=== PATIENT | male | born 1945 | race Caucasian/White ===

== ENCOUNTER → 2018-10-18 16:28 | Outpatient (REF) | payer OTHER, SELFPAY | LOC: LAB 16:28 | PROVIDERS: Visit Provider Internal Medicine | DX: L97.512 Non-pressure chronic ulcer of other part of right foot with fat layer exposed (principal) | CPT/HCPCS: 87070; 87075; 87077; 87147; 87186; 87205 ==

== ENCOUNTER 2018-10-25 16:57 | Emergency (ER) | payer OTHER, SELFPAY ==
[2018-10-25 17:05] VITALS: PULSE 97; RESP 165; O2SAT 96; BMI 24.4
--- NOTE | 2018-10-26 02:08 | ED.SKABFB ---
HPI - Skin/Abscess/Foreign Bdy General Chief complaint: Skin/Abscess/Foreign Body Stated complaint: GROIN INFECTION TOLD TO GET SEEN Time Seen by Provider: 10/25/18 17:55 Related Data Home Medications Medication Instructions Recorded Confirmed OMEGA-3 FATTY ACIDS (FISH OIL) 500 mg PO #2 08/11/16 atorvastatin [Lipitor] 40 mg PO HS #0 08/11/16 clopidogrel [Plavix] 75 mg PO QDAY #0 08/11/16 doxycycline hyclate 100 mg PO Q12H 10/25/18 10/25/18 glimepiride 4 mg PO DAILY 10/25/18 10/25/18 lisinopril 10 mg PO DAILY 10/25/18 10/25/18 metformin 1,000 mg PO DAILY 10/25/18 10/25/18 Allergies Allergy/AdvReac Type Severity Reaction Status Date / Time No Known Drug Allergies Allergy Verified 10/25/18 17:27 Exam Initial Vital Signs Initial Vital Signs: Vital Signs Pulse Rate 97 H 10/25/18 17:05 Respiratory Rate 165 H 10/25/18 17:05 Pulse Oximetry 96 10/25/18 17:05 Discharge Plan Departure Patient Disposition: Left Without Being Seen Clinical Impression: Patient left without being seen Discharge Date/Time: 10/25/18 19:59 Interventions: ED Discharge Assessment Last Done: 10/25/18 19:58
== END 2018-10-25 19:59 | disposition left against medical advice (07) ==
PROVIDERS: Emergency Provider Emergency Medicine
DX: Z53.21 Procedure and treatment not carried out due to patient leaving prior to being seen by health care provider (principal)
CPT/HCPCS: 99282

== ENCOUNTER 2018-10-26 17:14 | Emergency (ER) | payer OTHER, SELFPAY ==
[2018-10-26 17:16] VITALS: BP 138/75; PULSE 102; RESP 16; TEMP 37.2; O2SAT 98
--- NOTE | 2018-10-26 18:13 | ED.SKABFB ---
HPI - Skin/Abscess/Foreign Bdy General Chief complaint: Skin/Abscess/Foreign Body Stated complaint: INFECTION IN GROIN AREA Time Seen by Provider: 10/26/18 18:13 Source: patient Mode of arrival: ambulatory Limitations: no limitations History of Present Illness HPI narrative: The patient is a diabetic, on oral medications for diabetes control. His hemoglobin A1c is around 11. He notes his glucose testing has run high, he has not monitored regularly. He was seen by his primary care doctor yesterday for a toe infection that was started on doxycycline. He mentioned a progressive swelling to the scrotum over the past weeks. The swelling to the scrotum had increased in recent days. The patient came to the ER yesterday, but walked out without being seen due to a long wait time. Today the swelling on the scrotum popped with drainage of brown fluid. Pain and swelling have decreased significantly. He is having no fever chills. he has a lump on the posterior left hemiscrotum. There is no dysuria. There is no localized erythema. He is having no fever chills. Related Data Home Medications Medication Instructions Recorded Confirmed OMEGA-3 FATTY ACIDS (FISH OIL) 500 mg PO #2 08/11/16 atorvastatin [Lipitor] 40 mg PO HS #0 08/11/16 clopidogrel [Plavix] 75 mg PO QDAY #0 08/11/16 doxycycline hyclate 100 mg PO Q12H 10/25/18 10/26/18 glimepiride 4 mg PO DAILY 10/25/18 10/26/18 lisinopril 10 mg PO DAILY 10/25/18 10/26/18 metformin 1,000 mg PO DAILY 10/25/18 10/26/18 Allergies Allergy/AdvReac Type Severity Reaction Status Date / Time No Known Drug Allergies Allergy Verified 10/25/18 17:27 Review of Systems Review of Systems ROS Unobtainable: All systems reviewed & are unremarkable except as noted in HPI and below Constitutional Denies chills, Denies fatigue and Denies fever(s) Cardiovascular Denies chest pain and Denies dyspnea Respiratory Denies cough and Denies dyspnea Gastrointestinal Gastrointestinal: Denies abdominal pain, Denies change in bowel habits, Denies nausea and Denies vomiting Genitourinary Denies hematuria, Denies flank pain and Denies urinary incontinence Comments: Swelling to the left hemiscrotum. Integumentary/Breasts Comments: Scrotal swelling with tenderness, no associated erythema or warmth. Endocrine Denies fatigue [facility] Medical History (Updated 10/26/18 @ 21:28 by Gregorio Rebolledo MD) Diabetes (Acute) Hyperlipidemia (Acute) Hypertension (Acute) No history of major surgery within 1 month (Acute) Social History Smoking Status: Never smoker Social History Smoking Status: Never smoker Exam Initial Vital Signs Initial Vital Signs: Vital Signs Temperature 99.0 F 10/26/18 17:16 Pulse Rate 102 H 10/26/18 17:16 Respiratory Rate 16 10/26/18 17:16 Blood Pressure 138/75 10/26/18 17:16 Pulse Oximetry 98 10/26/18 17:16 Const General: cooperative and well developed Nutritional Appearance: well nourished Orientation: alert, awake, oriented x3 and not confused Cardio Rate: regular rate Rhythm: regular rhythm Heart Sounds: no click, no gallops, no murmurs and no rubs Pulses: normal peripheral pulses GI Inspection: non-distended Palpation: soft, no hepatosplenomegaly, No guarding, No pulsatile mass and No tender Auscultation: normal bowel sounds Penis: normal penis Other: Abscess to the left posterior scrotum that is spontaneously draining. I was able to express 2 mL of brown. The fluid from the abscess site. There is no significant localized erythema or warmth. There is no cellulitis change. Extrem Other: Excoriation of skin to the right 2nd toe tip. There is a bandage that was soaked with urine material when removed. There is not a lot of ongoing drainage from the tip of the toe, the skin is cracked and there is erythema to the tip capillary refill is intact on that toe. Course Orders Ordered: ED Orders 10/26/18 18:45 Wound Culture and Gram Stain Stat 10/26/18 18:52 US scrotum Stat 10/26/18 19:00 Basic Metabolic Panel Stat Complete Blood Count AUTO DIFF Stat Lactate (Lactic Acid) Stat Vital Signs - 8 hr 10/26/18 17:16 10/26/18 21:36 Temperature 99.0 F 99.0 F Pulse Rate 102 H 83 Respiratory Rate 16 15 Blood Pressure 138/75 164/87 H Pulse Oximetry 98 97 MDM - Skin/Abscess/Foreign Bdy Lab Data Result diagrams: 10/26/18 19:00 10/26/18 19:00 Lab Results 10/26/18 10/26/18 10/26/18 Range/Units 19:00 19:00 19:00 WBC 11.0 (4.5-11.0) X10^3/uL RBC 3.68 L (4.5-5.9) X10^6/uL Hgb 11.9 L (13.5-17.5) g/dL Hct 35.4 L (41-53) % MCV 96.3 (80-100) fL MCH 32.4 (26-34) PG MCHC 33.7 (30-36) % RDW 12.7 (11.6-14.8) % Plt Count 261 (150-400) X10^3/uL Neut % (Auto) 75.4 H (50-75) % Lymph % (Auto) 13.5 L (25-40) % [place] % (Auto) 9.2 (3-14) % Eos % (Auto) 1.0 L (2-4) % Baso % (Auto) 0.9 (0-2) % Neut # (Auto) 8300 H (3615-3623) /uL Lymph # (Auto) 1500 (9538-4620) /uL [place] # (Auto) 1000 H (0-900) /uL Eos # (Auto) 100 (0-450) /uL Baso # (Auto) 100 (0-100) /uL Sodium 135 L (137-145) mmol/L Potassium 4.2 (3.4-5.1) mmol/L Chloride 97 L (98-107) mmol/L Carbon Dioxide 26 (22-32) mmol/L BUN 18 (9-20) mg/dL Creatinine 0.70 (0.66-1.25) mg/dL Estimated GFR > 60.0 (>60) mL/min BUN/Creatinine Ratio 25.7 H (6-22) Glucose 301 H (80-110) mg/dL Lactate 1.7 (0.7-2.1) mmol/L Calcium 9.7 (8.4-10.2) mg/dL Imaging Data Scrotum US:: Radiologist's impression: [address] [address] Ultrasound Report Signed Patient: Matias Arango#: [id number] : 7Acct:[id number] Age/Sex: 73 / MDate of Service: 10/26/18 Loc: ED Accession Number: [id number] Procedure: US scrotum Ordering Provider: Gregorio Rebolledo M.D. PROCEDURE: US SCROTUM INDICATIONS: SCROTAL ABSCESS, ABSCESS HAS NOW DRAINED TECHNIQUE: Real-time scanning was performed of the scrotum and testicles, with image documentation. Color and pulse Doppler interrogation was performed of both testicles. COMPARISON: [facility], , CAROTID ARTERY DOPPLER BILAT, 09/03/2016, 16:03. [facility], , ARTERIAL LOW.EXTREM.BILATERAL, 07/19/2015, 15:23. FINDINGS: The right testicle measures 4.1 x 2.8 x 1.7 cm. The left testicle measures 3.7 x 2.3 x 2.5 cm. The right epididymal head measures 1.0 x 0.8 x 0.8 cm. It is difficult to distinguish the left epididymis from the adjacent soft tissues. There is a left varicocele. There is a 4.5 x 3.7 x 3.6 cm heterogeneous soft tissue and fluid collection lateral to the left testicle which demonstrates increased vascularity on Doppler ultrasound. There are bilateral left greater than right small hydroceles with internal echogenic debris, left greater than right. There is left greater than right scrotal wall thickening. There is preserved vascular flow within the testicular parenchyma bilaterally. IMPRESSION: 1. 4.5 cm soft tissue and fluid collection lateral to the left testicle, concerning for developing phlegmon/abscess with associated diffuse scrotal edema. Echogenic debris within the small left greater than right hydroceles may represent pus, protein, or hemorrhage. 2. Preserved vascular flow within the bilateral testicular parenchyma identified by Doppler ultrasound. Dictated by: Elvis Georges M.D. on 10/26/2018 at 20:56 Approved by: Elvis Georges M.D. on 10/26/2018 at 21:03 [facility] Narrative Medical decision making narrative: The patient has a draining scrotal abscess without cellulitis. He is already on doxycycline for a right toe infection. Unfortunate his glucose level was greater than 300. The urologist cable television program director tonight is with the [facility], meaning the patient would have to go to [place] to be seen. I have asked him to follow up with his doctor tomorrow for better diabetes control and to potentially arrange local urology consultation. Discharge Plan Departure Patient Disposition: Home Clinical Impression: Abscess of scrotal wall, Poorly controlled diabetes mellitus Discharge Date/Time: 10/26/18 21:38 Interventions: ED Discharge Assessment Last Done: 10/26/18 21:36 Instructions: DI for Skin Abscess Activity Restrictions/Additional Instructions: Take the Doxycycline as prescribed. Follow up with her primary care doctor tomorrow regarding the hyperglycemia. Discuss routine local consultation to Urology with your primary care doctor. Return to the ER as needed. Prescriptions: No Action clopidogrel [Plavix] 75 MG tablet 75 mg PO QDAY Qty: 0 RF: 0 OMEGA-3 FATTY ACIDS (FISH OIL) 500 mg PO Qty: 2 RF: 0 atorvastatin [Lipitor] 40 MG tablet 40 mg PO HS Qty: 0 RF: 0 metformin 1,000 mg tablet 1,000 mg PO DAILY RF: 0 lisinopril 10 mg tablet 10 mg PO DAILY RF: 0 glimepiride 4 mg tablet 4 mg PO DAILY RF: 0 doxycycline hyclate 100 mg tablet 100 mg PO Q12H RF: 0 Referrals: Reji Davidson MD [Physician] -
--- NOTE | 2018-10-26 18:52 | ED_ITS ---
HPI - Skin/Abscess/Foreign Bdy General Chief complaint: Skin/Abscess/Foreign Body Stated complaint: INFECTION IN GROIN AREA Time Seen by Provider: 10/26/18 18:13 Source: patient Mode of arrival: ambulatory Limitations: no limitations History of Present Illness HPI narrative: The patient is a diabetic, on oral medications for diabetes control. His hemoglobin A1c is around 11. He notes his glucose testing has run high, he has not monitored regularly. He was seen by his primary care doctor yesterday for a toe infection that was started on doxycycline. He mentioned a progressive swelling to the scrotum over the past weeks. The swelling to the scrotum had increased in recent days. The patient came to the ER yesterday, but walked out without being seen due to a long wait time. Today the swelling on the scrotum popped with drainage of brown fluid. Pain and swelling have decreased significantly. He is having no fever chills. he has a lump on the posterior left hemiscrotum. There is no dysuria. There is no localized erythema. He is having no fever chills. Related Data Home Medications Medication Instructions Recorded Confirmed OMEGA-3 FATTY ACIDS (FISH OIL) 500 mg PO #2 08/11/16 atorvastatin [Lipitor] 40 mg PO HS #0 08/11/16 clopidogrel [Plavix] 75 mg PO QDAY #0 08/11/16 doxycycline hyclate 100 mg PO Q12H 10/25/18 10/26/18 glimepiride 4 mg PO DAILY 10/25/18 10/26/18 lisinopril 10 mg PO DAILY 10/25/18 10/26/18 metformin 1,000 mg PO DAILY 10/25/18 10/26/18 Allergies Allergy/AdvReac Type Severity Reaction Status Date / Time No Known Drug Allergies Allergy Verified 10/25/18 17:27 Review of Systems Review of Systems ROS Unobtainable: All systems reviewed & are unremarkable except as noted in HPI and below Constitutional Denies chills, Denies fatigue and Denies fever(s) Cardiovascular Denies chest pain and Denies dyspnea Respiratory Denies cough and Denies dyspnea Gastrointestinal Gastrointestinal: Denies abdominal pain, Denies change in bowel habits, Denies nausea and Denies vomiting Genitourinary Denies hematuria, Denies flank pain and Denies urinary incontinence Comments: Swelling to the left hemiscrotum. Integumentary/Breasts Comments: Scrotal swelling with tenderness, no associated erythema or warmth. Endocrine Denies fatigue [facility] Medical History (Updated 10/26/18 @ 21:28 by Gregorio Rebolledo MD) Diabetes (Acute) Hyperlipidemia (Acute) Hypertension (Acute) No history of major surgery within 1 month (Acute) Social History Smoking Status: Never smoker Social History Smoking Status: Never smoker Exam Initial Vital Signs Initial Vital Signs: Vital Signs Temperature 99.0 F 10/26/18 17:16 Pulse Rate 102 H 10/26/18 17:16 Respiratory Rate 16 10/26/18 17:16 Blood Pressure 138/75 10/26/18 17:16 Pulse Oximetry 98 10/26/18 17:16 Const General: cooperative and well developed Nutritional Appearance: well nourished Orientation: alert, awake, oriented x3 and not confused Cardio Rate: regular rate Rhythm: regular rhythm Heart Sounds: no click, no gallops, no murmurs and no rubs Pulses: normal peripheral pulses GI Inspection: non-distended Palpation: soft, no hepatosplenomegaly, No guarding, No pulsatile mass and No tender Auscultation: normal bowel sounds Penis: normal penis Other: Abscess to the left posterior scrotum that is spontaneously draining. I was able to express 2 mL of brown. The fluid from the abscess site. There is no significant localized erythema or warmth. There is no cellulitis change. Extrem Other: Excoriation of skin to the right 2nd toe tip. There is a bandage that was soaked with urine material when removed. There is not a lot of ongoing drainage from the tip of the toe, the skin is cracked and there is erythema to the tip capillary refill is intact on that toe. Course Orders Ordered: ED Orders 10/26/18 18:45 Wound Culture and Gram Stain Stat 10/26/18 18:52 US scrotum Stat 10/26/18 19:00 Basic Metabolic Panel Stat Complete Blood Count AUTO DIFF Stat Lactate (Lactic Acid) Stat Vital Signs - 8 hr 10/26/18 17:16 10/26/18 21:36 Temperature 99.0 F 99.0 F Pulse Rate 102 H 83 Respiratory Rate 16 15 Blood Pressure 138/75 164/87 H Pulse Oximetry 98 97 MDM - Skin/Abscess/Foreign Bdy Lab Data Result diagrams: 10/26/18 19:00 10/26/18 19:00 Lab Results 10/26/18 10/26/18 10/26/18 Range/Units 19:00 19:00 19:00 WBC 11.0 (4.5-11.0) X10^3/uL RBC 3.68 L (4.5-5.9) X10^6/uL Hgb 11.9 L (13.5-17.5) g/dL Hct 35.4 L (41-53) % MCV 96.3 (80-100) fL MCH 32.4 (26-34) PG MCHC 33.7 (30-36) % RDW 12.7 (11.6-14.8) % Plt Count 261 (150-400) X10^3/uL Neut % (Auto) 75.4 H (50-75) % Lymph % (Auto) 13.5 L (25-40) % [place] % (Auto) 9.2 (3-14) % Eos % (Auto) 1.0 L (2-4) % Baso % (Auto) 0.9 (0-2) % Neut # (Auto) 8300 H (9389-6031) /uL Lymph # (Auto) 1500 (6967-6760) /uL [place] # (Auto) 1000 H (0-900) /uL Eos # (Auto) 100 (0-450) /uL Baso # (Auto) 100 (0-100) /uL Sodium 135 L (137-145) mmol/L Potassium 4.2 (3.4-5.1) mmol/L Chloride 97 L (98-107) mmol/L Carbon Dioxide 26 (22-32) mmol/L BUN 18 (9-20) mg/dL Creatinine 0.70 (0.66-1.25) mg/dL Estimated GFR > 60.0 (>60) mL/min BUN/Creatinine Ratio 25.7 H (6-22) Glucose 301 H (80-110) mg/dL Lactate 1.7 (0.7-2.1) mmol/L Calcium 9.7 (8.4-10.2) mg/dL Imaging Data Scrotum US:: Radiologist's impression: [address] [address] Ultrasound Report Signed Patient: Matias Arango#: [id number] : 7Acct:[id number] Age/Sex: 73 / MDate of Service: 10/26/18 Loc: ED Accession Number: [id number] Procedure: US scrotum Ordering Provider: Gregorio Rebolledo M.D. PROCEDURE: US SCROTUM INDICATIONS: SCROTAL ABSCESS, ABSCESS HAS NOW DRAINED TECHNIQUE: Real-time scanning was performed of the scrotum and testicles, with image documentation. Color and pulse Doppler interrogation was performed of both testicles. COMPARISON: [facility], , CAROTID ARTERY DOPPLER BILAT, 09/03/2016, 16:0 3. [facility], [place], ARTERIAL LOW.EXTREM.BILATERAL, 07/19/2015, 15:23. FINDINGS: The right testicle measures 4.1 x 2.8 x 1.7 cm. The left testicle measures 3.7 x 2.3 x 2.5 cm. The right epididymal head measures 1.0 x 0.8 x 0.8 cm. It is difficult to distinguish the left epididymis from the adjacent soft tissues. There is a left varicocele. There is a 4.5 x 3.7 x 3.6 cm heterogeneous soft tissue and fluid collection lateral to the left testicle which demonstrates increased vascularity on Doppler ultrasound. There are bilateral left greater than right small hydroceles with internal echogenic debris, left greater than right. There is left greater than right scrotal wall thickening. There is preserved vascular flow within the testicular parenchyma bilaterally. IMPRESSION: 1. 4.5 cm soft tissue and fluid collection lateral to the left testicle, concerning for developing phlegmon/abscess with associated diffuse scrotal edema. Echogenic debris within the small left greater than right hydroceles may represent pus, protein, or hemorrhage. 2. Preserved vascular flow within the bilateral testicular parenchyma identified by Doppler ultrasound. Dictated by: Elvis Georges M.D. on 10/26/2018 at 20:56 Approved by: Elvis Geroges M.D. on 10/26/2018 at 21:03 [facility] Narrative Medical decision making narrative: The patient has a draining scrotal abscess without cellulitis. He is already on doxycycline for a right toe infection. Unfortunate his glucose level was greater than 300. The urologist ammonium sulfate operator tonight is with the [facility], meaning the patient would have to go to [place] to be seen. I have asked him to follow up with his doctor tomorrow for better diabetes control and to potentially arrange local urology consultation. Discharge Plan Departure Patient Disposition: Home Clinical Impression: Abscess of scrotal wall, Poorly controlled diabetes mellitus Discharge Date/Time: 10/26/18 21:38 Interventions: ED Discharge Assessment Last Done: 10/26/18 21:36 Instructions: DI for Skin Abscess Activity Restrictions/Additional Instructions: Take the Doxycycline as prescribed. Follow up with her primary care doctor tomorrow regarding the hyperglycemia. Discuss routine local consultation to Urology with your primary care doctor. Return to the ER as needed. Prescriptions: No Action clopidogrel [Plavix] 75 MG tablet 75 mg PO QDAY Qty: 0 RF: 0 OMEGA-3 FATTY ACIDS (FISH OIL) 500 mg PO Qty: 2 RF: 0 atorvastatin [Lipitor] 40 MG tablet 40 mg PO HS Qty: 0 RF: 0 metformin 1,000 mg tablet 1,000 mg PO DAILY RF: 0 lisinopril 10 mg tablet 10 mg PO DAILY RF: 0 glimepiride 4 mg tablet 4 mg PO DAILY RF: 0 doxycycline hyclate 100 mg tablet 100 mg PO Q12H RF: 0 Referrals: Reji Davidson MD [Physician] -
[2018-10-26 19:09] LABS: Add Manual Diff / Slide Review NO; Basophils Absolute Auto 100 /uL (0-100); Basophils Percent Auto 0.9 % (0-2); Eosinophils Absolute Auto 100 /uL (0-450); Hematocrit 35.4 % (41-53); Hemoglobin 11.9 g/dL (13.5-17.5); Lymphocytes Absolute Auto 1500 /uL (1100-4500); Lymphocytes Percent Auto 13.5 % (25-40); Mean Corpuscular HGB Conc 33.7 % (30-36); Mean Corpuscular Hemoglobin 32.4 PG (26-34); Mean Corpuscular Volume 96.3 fL (80-100); Monocytes Absolute Auto 1000 /uL (0-900); Monocytes Percent Auto 9.2 % (3-14); Neutrophils Absolute Auto 8300 /uL (1500-7000); Neutrophils Percent Auto 75.4 % (50-75); Platelet Count 261 X10^3/uL (150-400); Red Blood Cell Count 3.68 X10^6/uL (4.5-5.9); Red Cell Distribution Width 12.7 % (11.6-14.8)
[2018-10-26 19:21] LABS: BUN Creatinine Ratio 25.7 (6-22); Blood Urea Nitrogen 18 mg/dL (9-20); Calcium 9.7 mg/dL (8.4-10.2); Carbon Dioxide 26 mmol/L (22-32); Chloride 97 mmol/L (98-107); Estimated Glomerular Filt Rate > 60.0 mL/min (>60); Glucose 301 mg/dL (80-110); HEMOLYSIS < 15 (0-50); Lactate (Lactic Acid) 1.7 mmol/L (0.7-2.1); Potassium 4.2 mmol/L (3.4-5.1); Sodium 135 mmol/L (137-145)
--- NOTE | 2018-10-26 20:00 | PC.NURSE ---
PT states infection to right second toe, skin is cracked with erythema to the tip capillary refill is intact, seen by PCP and was started on doxycycline yesterday. Also reports swelling to the scrotum over the past weeks and increasing over past few days. Abscess to left posterior scrotum that drains spontaneously. Denies fever.
[2018-10-26 21:36] VITALS: BP 164/87; PULSE 83; RESP 15; TEMP 37.2; O2SAT 97
== END 2018-10-26 21:38 | disposition home or self-care (01) ==
PROVIDERS: Emergency Provider Emergency Medicine
DX: N49.2 Inflammatory disorders of scrotum (principal); E11.65 Type 2 diabetes mellitus with hyperglycemia
CPT/HCPCS: 36591; 76870; 80048; 83605; 85025; 87070; 87075; 87077; 87147; 87205; 99283; 99284

== ENCOUNTER → 2018-11-24 18:24 | Outpatient (ROUT) | payer OTHER, SELFPAY | PROVIDERS: Visit Provider Internal Medicine | DX: L97.512 Non-pressure chronic ulcer of other part of right foot with fat layer exposed (principal) | CPT/HCPCS: 87070; 87077; 87147; 87186; 87205 ==

== ENCOUNTER → 2018-12-13 18:55 | Outpatient (ROUT) | payer OTHER, SELFPAY | PROVIDERS: Visit Provider Internal Medicine | DX: L08.9 Local infection of the skin and subcutaneous tissue, unspecified (principal) | CPT/HCPCS: 87070; 87075; 87077; 87147; 87186; 87205 ==

== ENCOUNTER → 2019-05-23 18:19 | Outpatient (ROUT) | payer OTHER, SELFPAY | PROVIDERS: Visit Provider Internal Medicine | DX: L03.115 Cellulitis of right lower limb (principal) | CPT/HCPCS: 87070; 87075; 87077; 87147; 87205 ==

== ENCOUNTER → 2019-07-26 16:25 | Outpatient (ROUT) | payer OTHER, SELFPAY | PROVIDERS: Visit Provider Internal Medicine | DX: M86.18 Other acute osteomyelitis, other site (principal) | CPT/HCPCS: 87070; 87075; 87077; 87147; 87186; 87205 ==

== ENCOUNTER → 2019-08-04 14:12 | Outpatient (CLI) | payer OTHER, SELFPAY ==
[2019-08-04 15:25] LABS: Hemoglobin A1C% w Est Avg Glu 9.5 % (4.0-6.0)
[2019-08-04 15:32] LABS: Erythrocyte Sedimentation Rate 82 MM/HR (0-15)
[2019-08-04 16:14] LABS: Alanine Aminotransferase 31 IU/L (<50); Albumin 3.4 g/dL (3.5-5.0); Albumin Globulin Ratio 1.1 (1.0-2.8); Alkaline Phosphatase 95 U/L (38-126); Aspartate Aminotransferase 32 IU/L (17-59); Bilirubin Total 0.3 mg/dL (0.2-1.3); Blood Urea Nitrogen 23 mg/dL (9-20); Calcium 9.4 mg/dL (8.4-10.2); Carbon Dioxide 25 mmol/L (22-32); Chloride 104 mmol/L (98-107); Estimated Glomerular Filt Rate > 60.0 mL/min (>60); Globulin 3.1 g/dL (1.7-4.1); Glucose 317 mg/dL (80-110); HEMOLYSIS < 15 (0-50); Sodium 138 mmol/L (137-145); Total Protein 6.5 g/dL (6.3-8.2)
[2019-08-04 16:18] LABS: Potassium 5.5 mmol/L (3.4-5.1)
== END ==
LOC: LAB 14:14
PROVIDERS: PCP Internal Medicine; Visit Provider Internal Medicine
DX: I10 Essential (primary) hypertension (principal); M86.18 Other acute osteomyelitis, other site; E11.621 Type 2 diabetes mellitus with foot ulcer
CPT/HCPCS: 36415; 80053; 83036; 85651

== ENCOUNTER → 2019-08-08 15:07 | Outpatient (CLI) | payer OTHER, SELFPAY | PROVIDERS: PCP Internal Medicine; Visit Provider Internal Medicine | DX: E87.6 Hypokalemia (principal) ==

== ENCOUNTER → 2019-08-09 16:19 | Outpatient (CLI) | payer OTHER, SELFPAY ==
[2019-08-09 18:18] LABS: Blood Urea Nitrogen 23 mg/dL (9-20); Calcium 9.4 mg/dL (8.4-10.2); Carbon Dioxide 26 mmol/L (22-32); Chloride 101 mmol/L (98-107); Estimated Glomerular Filt Rate > 60.0 mL/min (>60); Glucose 158 mg/dL (80-110); HEMOLYSIS < 15 (0-50); Potassium 4.8 mmol/L (3.4-5.1); Sodium 138 mmol/L (137-145)
== END ==
PROVIDERS: PCP Internal Medicine; Visit Provider Internal Medicine
DX: E87.6 Hypokalemia (principal)
CPT/HCPCS: 36415; 80048

== ENCOUNTER 2019-08-12 13:46 | Day surgery (SDC) | payer OTHER, SELFPAY ==
[2019-08-08 13:59] VITALS: BMI 24.4
--- NOTE | 2019-08-12 | PATH_ITS ---
[facility] Accession Number: [id number] . 01 Material submitted: . toe - RIGHT SECOND TOE . 02 Diagnosis: Right Second Toe, Amputation: Skin with ulceration and acute and chronic inflammation extending into the deep dermis and subcutaneous tissue. Mild acute and chronic osteomyelitis. Proximal margins are negative for active inflammation. MRV 08/15/2019 1252 Local . 02 Electronically signed: . Natalia Barrios MD, Pathologist NPI- [id number] . 01 Gross description: . Received in formalin, labeled R second toe, is a resected toe (3.5 cm AP, 1.5 cm SI, 2.3 cm ML). The toenail is absent. The skin involving the nailbed is antony-law and ulcerated. The surrounding skin is pale pink and unremarkable. The underlying bone is easily sliced with a scalpel. The proximal bone is hard and cannot be sliced with a scalpel. Ink code: black-superior, orange-inferior, purple-bone resection margin. Section code: (A1) skin and soft tissue resection margins, leasing representative; (A2) bone resection margin en face; (A3) ulcerated area, leasing representative serial sections; (A4) underlying bone, leasing representative serial sections. Note: The bone sections have been decalcified. ([id number]) /MRV 08/14/20197 Local . 02 Pathologist provided ICD-10: E11.621, E11.51, M86.9, I96 . 02 CPT . 137748, 099275 Performed at: [address] [facility], [place], [place] [id number] MD Durga Flor MD Phone: [phone] Performed at: [address] [facility] [address] [place] [id number] MD Jazmyn English MD Phone: [phone]
[2019-08-12 16:15] VITALS: BP 182/95; PULSE 89; RESP 12; TEMP 36.9; O2SAT 98
[2019-08-12 16:18] VITALS: BMI 24.5
--- NOTE | 2019-08-12 16:19 | PM.PREOP ---
Pre-operative Note Interval Note History & Physical reviewed/Exam performed by Physician: Yes Changes to H&P: Yes H&P completed within 30 days and has changed as indicated here:: Patient originally had someone that was going to drive him to surgery but that person counseled on him late. Patient drove himself here today. We discussed that procedure can be done under strict local and then patient can go home on his own. If he requires general anesthetic will need to reschedule. Discussed this with the patient and have decided to proceed using local.
[2019-08-12] MEDS: CELECOXIB 200 MG CAPSULE 400 MG PO (16:28)
[2019-08-12] MEDS: LACTATED RINGERS 1,000 ML 42 ML IV (16:28)
[2019-08-12] MEDS: GABAPENTIN 300 MG CAPSULE PO (16:28)
[2019-08-12] MEDS: ACETAMINOPHEN 325 MG TABLET 975 MG PO (16:28)
[2019-08-12] MEDS: CEFAZOLIN 2 GM/100 ML FROZ.PIGGY IV (16:31)
--- NOTE | 2019-08-12 16:32 | SUR.PREOP ---
Patient arrived and stated that he did not have a ride home and that there was no one to take him. notified Dr. Brennan who stated that procedure could be done under local anesthesia. Patient at first refused this, but did not have antibiotics left at home to last him until he could reschedule surgery. Patient agreed to wait until Dr. Brennan was out of another procedure to discuss options with her. Dr. Brennan came and talked to patient and patient and physician agreed to do procedure under local only. Physician aware that patient has no one at home. Patient prepped for surgery and taken to OR by OR staff.
--- NOTE | 2019-08-12 16:51 | SUR.OPER ---
Supine on padded OR bed, head on pillow, arms secured on padded arm boards at <90 degrees abduction, legs uncrossed, safety belt at thigh, blanket over left leg. blankets placed under right hip
[2019-08-12] MEDS: LIDOCAINE 1% W/EPI 8 ML INJ (16:57)
[2019-08-12 17:09] VITALS: BP 181/95; PULSE 84; RESP 14; TEMP 36.4; O2SAT 98
[2019-08-12 17:14] VITALS: BP 179/92; PULSE 88; RESP 14; O2SAT 98
--- NOTE | 2019-08-12 17:18 | SUR.PHASEII ---
pt awake and alert. Pt states pain is a 3 . Pt did not have any anesthisia and therefore can drive home per Dr. Brennan. .
[2019-08-12 17:19] VITALS: BP 166/91; PULSE 89; RESP 11; O2SAT 98
--- NOTE | 2019-08-12 17:29 | PM.OP.1 ---
Operative Date/Time/Diagnoses Date of procedure: 08/12/19 Time of procedure: 16:30 Pre-op diagnosis: Right 2nd toe ulcer due to diabetes Osteomyelitis right 2nd toe Diabetes uncontrolled Post-op diagnosis: same Procedure & Clinicians Procedure: Amputation toe right 2nd CPT code 43967 --amputation 2nd toe through proximal phalanx, right foot Same procedure as scheduled: Yes Indications: Patient is a 73-year-old male diabetic that presents with a right toe ulceration and osteomyelitis. His distal phalanx is completely dissolved and the middle phalanx is exposed through the wound. He is an uncontrolled diabetic. Hemoglobin A1c 10.4. He has had other toe amputations in the past by Dr. Hernandez. He states he has had a wound at the DIP joint of his right 2nd toe for many months that has been treated by Dr. martínez and had difficulty healing and is in symptoms have increased over the last few weeks. He is currently on levofloxacin. He has neuropathy. He has been wearing a regular shoe. He has a remote history of vascular intervention on the left side. Recent Doppler shows scattered plaques but no hemodynamically significant stenosis. He has right 2nd toe DIP and middle phalanx osteomyelitis. Part of the middle phalanx is exposed. The distal phalanx has been completely destroyed. Patient has uncontrolled diabetes. He does not wish to go back on insulin. Discussed treatment options. With the bone involvement he has been indicated for partial amputation through the proximal phalanx to treat the osteomyelitis and to leave the stump of the proximal phalanx to help reduce any residual angulation by the remaining toes. The alternative would be an MTP joint disarticulation. The patient would like to proceed with the proximal phalanx amputation similar to what he had on additional digits. The risks benefits alternatives to procedure were discussed with the patient in detail including recurrence of infection need for additional surgeries are amputations nerve and vessel damage, pain, dissatisfaction with the procedure no guarantees were made. Consent was signed. Surgeon: Marilin Brennan Click Yes if Unassisted: Yes Anesthesia Type: Local Operative Notes Findings: Osteomyelitis open dorsal toe ulceration with visualization of the middle phalanx. Closure Type: primary Specimen(s): other (Right 2nd toe) Prosthetic devices, grafts, tissues, transplants, or devices: Non Estimated Blood Loss (mL): 2 Tourniquet time (min): 0 Procedure in detail: Patient was seen in the preoperative area the site of surgery was marked and consent confirmed. Patient elected to undergo the procedure under local anesthetic only. Risks benefits and alternatives to the procedure were discussed with the patient in detail. Therefore the patient was anesthetized in the preoperative area using 6 cc of 1% lidocaine with epinephrine for a digital block for the right 2nd toe. The area was pre cleansed with chlorhexidine and the digital block was placed. The patient was then brought back to the operating room he was placed onto the operative table. The right lower extremity was prepped in the standard sterile fashion. A formal time-out procedure was performed confirming the patient's side and site of surgery and presence of consent. He had preoperative antibiotics with Ancef 2 g. Patient confirmed adequate local anesthetic to his right toe. The typical fishmouth incision was made over the proximal phalanx of the right 2nd toe this was taken down through the skin to the level of the bone through the soft tissues and extensor tendons. This was then finished plantarly in the same fashion with the flexor tendon. The soft tissue was retracted and proximal phalanx exposed. Tibia saw was used to transect the bone. Edges were rounded using the bone cutters. Final fluoroscopic imaging with the mini C-arm demonstrated adequate resection. The toe was sent for pathology. Wound was irrigated. There was no evidence of infection at the level of transection. Wound was then closed after gloves were changed this was done with 2 O Vicryl and 400 nylon suture. Sterile dressing was placed with Xeroform gauze Devika and an Murphy wrap. Patient was taken to the recovery room in good condition. Patient tolerated the procedure well. Counts were correct. Complications: none Post-operative Condition: stable Disposition: same day surgery Plan for aftercare: Weightbear as tolerated. Wear a postop shoe or a regular shoe. Keep dressings in place until follow-up. Keep dressing clean dry and intact. He has been given a prescription for oral antibiotic. Take this as directed.
--- NOTE | 2019-08-12 18:09 | SUR.PHASEII ---
Assumed care at 1740. Discharge instructions reviewed with patient.
== END 2019-08-12 17:51 | disposition home or self-care (01) ==
PROVIDERS: PCP Internal Medicine; Visit Provider Orthopaedic Surgery Foot and Ankle Surgery
PROC: (CPT 28825; principal; 2019-08-12 15:15)
DX: I96 Gangrene, not elsewhere classified (principal); E11.52 Type 2 diabetes mellitus with diabetic peripheral angiopathy with gangrene; E11.621 Type 2 diabetes mellitus with foot ulcer; L97.814 Non-pressure chronic ulcer of other part of right lower leg with necrosis of bone; M86.9 Osteomyelitis, unspecified; Z79.84 Long term (current) use of oral hypoglycemic drugs
CPT/HCPCS: 28825; J0690